=== PATIENT | female | born 1995 | race Caucasian/White ===

== ENCOUNTER 2019-09-19 12:19 | Outpatient (CLI) | payer OTHER, SELFPAY ==
--- NOTE | ~2019-09-19 | XR_ITS ---
EXAMINATION: XR lumbar spine min 4V DATE: 09/19/2019 12:59 INDICATION: Low back pain TECHNIQUE: Anteroposterior, lateral, and bilateral oblique views of the lumbar spine, and cone-down l ateral view of the lumbosacral junction were obtained. COMPARISON: None. FINDINGS: There is no fracture, dislocation, or subluxation. The vertebral body heights, alignment, a nd intervertebral disc spaces are normal. The paravertebral soft tissues are unremarkable. IMPRESSION: 1. Normal lumbar spine. Reviewed, dictated and finalized at location A. IMPRESSION: 1. Normal lumbar spine.
--- NOTE | ~2019-09-19 | XR_ITS ---
EXAMINATION:XR cervical spine min 6V DATE: 09/19/2019 12:59 INDICATION: Neck pain TECHNIQUE: AP, lateral in neutral, flexion, extension, bilateral oblique, and odontoid views of the c ervical spine are provided. COMPARISON: None FINDINGS: Bone alignment is normal. There is no laxity with flexion or extension. The odontoid is int act. No fracture is identified. Vertebral body heights and disk spaces are normal. Prevertebral soft tissues are normal. IMPRESSION: 1. Normal cervical spine. Reviewed, dictated and finalized at location A. IMPRESSION: 1. Normal cervical spine.
== END 2019-09-19 12:20 | disposition home or self-care (01) ==
PROVIDERS: PCP Internal Medicine; Visit Provider Chiropractor
DX: M54.2 Cervicalgia (principal); M54.5 Low back pain
CPT/HCPCS: 72052; 72110

== ENCOUNTER 2020-11-28 17:04 | Inpatient (IN) | payer OTHER, SELFPAY ==
[2020-11-28] VITALS (13 sets, daily range): BP systolic 107–132; BP diastolic 61–76; PULSE 61–86; RESP 18; TEMP 36.7–36.8; BMI 40.1
--- OUTSIDE RECORDS SUMMARY | 2020-11-28 17:12 | XMS_ITS ---
:1995 Author Care Team Providers Name Role Phone TANYA GERMAIN MD Primary Care Provider [phone] Allergies Code Code System Name Reaction Severity Status Onset NKDA ? Medications Name Status Start Date Stop Date ? ? amoxicillin 500 mg capsule Completed ? 10/08 cyclobenzaprine 10 mg tablet Completed ? 08/2017 etodolac 400 mg tablet Completed ? 8 fluticasone propionate 50 mcg/actuation Completed ? 01/25/2018 nasal spray,suspension hydrocodone 5 mg-acetaminophen 325 mg Unknown ? Not available tablet hydrocodone 5 mg-acetaminophen 500 mg Unknown ? Not available tablet hydrocortisone 2.5 % topical cream with Completed ? 03/26/2017 perineal applicator Lo Loestrin Fe 1 mg-10 mcg (24)/10 mcg Completed ? 04/09/2020 (2) tablet naproxen 500 mg tablet Completed ? ondansetron 4 mg disintegrating tablet Unknown ? Not available ondansetron HCl 4 mg tablet Active ? Not available penicillin V potassium 500 mg tablet Completed ? 01/25/2018 phentermine 37.5 mg tablet Completed ? 04/09 Tjr-Jy-Glwddl 0.18 mg/0.215 mg/0.25 Completed ? 04/09/2020 mg-25 mcg tablet Tubersol 5 tub. unit/0.1 mL intradermal Unknown ? Not available injection solution Zithromax Z-Cy 250 mg tablet Completed ? TAKE 2 TABLETS (500 MG) BY ORAL ROUTE O NCE DAILY FOR 1 DAY THEN 1 TABLET (250 MG) BY ORAL ROUTE ONCE DAILY FOR 4 DAYS
--- OUTSIDE RECORDS SUMMARY | 2020-11-28 17:17 | XMS_ITS ---
:1995 Author Care Team Providers Name Role Phone TANYA GERMAIN MD Primary Care Provider [phone] Allergies Code Code System Name Reaction Severity [...] phentermine 37.5 mg tablet Completed ? 04/09 Hrk-Oy-Mcbrjj 0.18 mg/0.215 mg/0.25 Completed ? 04/09/2020 mg-25 mcg tablet Tubersol 5 tub. unit/0.1 mL intradermal Unknown ? Not available injection solution Zithromax Z-Cy 250 mg tablet Completed ? TAKE 2 TABLETS (500 MG) BY ORAL ROUTE O NCE DAILY FOR 1 DAY THEN 1 TABLET (250 MG) BY ORAL ROUTE ONCE DAILY FOR 4 DAYS
[2020-11-28] MEDS: DINOPROSTONE 10 MG VAG INSERT VAGINAL (18:02)
[2020-11-28] MEDS: AMPICILLIN 2 GM/NS 100 ML 2 GM/100 ML BAG IVPB (18:10)
[2020-11-28] MEDS: LACTATED RINGERS 1,000 ML 125 ML IV CONT ×2 (18:10→22:19)
[2020-11-28 18:18] LABS: Basophils Percent Auto 0.2 % (0.2-1.2); Eosinophils Percent Auto 0.5 % (0-4.4); Hematocrit 36.6 % (37.0-47.0); Hemoglobin 12.2 g/dL (12.0-15.0); Immature Granulocyte Absolute 0.04 K/mm3 (0.00-0.031); Immature Granulocyte Percent A 0.5 % (0-0.5); Lymphocytes Absolute Auto 2.53 K/mm3 (0.9-3.2); Lymphocytes Percent Auto 28.9 % (18.3-44.2); Mean Corpuscular HGB Conc 33.3 g/dl (32-36); Mean Corpuscular Hemoglobin 29.2 pg (26-34); Mean Corpuscular Volume 87.6 fl (80-100); Mean Platelet Volume 11.1 fl (7.4-10.4); Monocytes Absolute Auto 0.5 K/mm3 (0.1-0.6); Monocytes Percent Auto 6.2 % (2.6-8.5); Neutrophils Absolute Auto 5.6 K/mm3 (1.3-6.7); Neutrophils Percent Auto 63.7 % (45.5-73.1); Platelet Count Result 222 k/mm3 (150-375); Red Blood Count 4.18 M/mm3 (4.2-5.4); Red Cell Distribution Width 13.7 % (11.5-14.5); White Blood Count 8.8 K/mm3 (4.5-10.0)
--- NOTE | 2020-11-28 18:20 | WPDANESEPP ---
Anes - Eval Pre Procedure Procedure: labor epidural Date/Time: 11/28/20 18:20 Surgeon: magali Preop Diagnosis: pain during labor Pre Op Diagnosis: Induction Patient Data Age: 25 Gender: F Height: Weight: Last Vital Signs Pulse 86 11/28/20 17:46 BP 123/73 11/28/20 17:46 Allergies Allergy/AdvReac Type Severity Reaction Status Date / Time No Known Allergies Allergy Mild Verified 11/12/20 13:40 Home Medications Medication Instructions Recorded Confirmed Type ondansetron HCl [Zofran] 4 mg PO Q4H PRN 11/12/20 11/12/20 History prenat.vits,saeed,bkx-jlsm-mvuae 1 tablet PO DAILY 11/12/20 11/12/20 History [ #2] Laboratory Tests 11/28/20 11/28/20 18:04 18:04 WBC Pending RBC Pending Hgb Pending Hct Pending MCV Pending MCH Pending MCHC Pending RDW Pending Plt Count Pending MPV Pending Immature Gran % (Auto) Pending Neut % (Auto) Pending Lymph % (Auto) Pending [place] % (Auto) Pending Eos % (Auto) Pending Baso % (Auto) Pending Lymph # (Auto) Pending [place] # (Auto) Pending Eos # (Auto) Pending Baso # (Auto) Pending Abs Immat Gran (auto) Pending Absolute Neuts (auto) Pending Absolute Nucleated RBC Pending Nucleated RBC % Pending RPR Pending Patient hx anesthesia problems: none Family hx anesthesia problems: none PMFSH Past Medical History Medical History (Updated 11/28/20 @ 18:21 by Sonia Garrido CRNA) Obesity (BMI 30-39.9) Family History Family History (Updated 11/12/20 @ 13:43 by Carly Burt RN) Father Hypertension Diabetes mellitus Sibling Hypertension Social History Social History Smoking status: Never smoker Second hand tobacco smoke exposure: No Substance use: never Spiritual care concerns: No Exam Day of Procedure 11/28/20 18:20
[2020-11-28] MEDS: AMPICILLIN 1 GM/NS 50 ML 1 GM/50 ML BAG IVPB (22:19)
[2020-11-29] VITALS (131 sets, daily range): BP systolic 63–152; BP diastolic 35–116; PULSE 25–130; RESP 16–18; TEMP 36.3–37.2; O2SAT 79–100
[2020-11-29] MEDS: AMPICILLIN 1 GM/NS 50 ML 1 GM/50 ML BAG IVPB ×3 (02:42→11:04)
[2020-11-29] MEDS: OXYTOCIN 30 UNITS/NS 500 ML 30 UNITS/500 ML BAG 6 UNITS IV CONT (05:42)
[2020-11-29] MEDS: fentaNYL CITRATE INJ (*CRX) 100 MCG/2 ML VIAL 50 MCG IV PUSH (06:15)
[2020-11-29] MEDS: fentaNYL CITRATE INJ (*CRX) 100 MCG/2 ML VIAL IV PUSH (07:25)
[2020-11-29] MEDS: LACTATED RINGERS 1,000 ML 125 ML IV CONT ×2 (08:05→11:01)
[2020-11-29 10:40] LABS: Rapid Plasma Reagin Non-Reactive (NonReactive)
[2020-11-29] MEDS: ONDANSETRON INJ 4 MG/2 ML VIAL IV PUSH (12:45)
--- NOTE | 2020-11-29 14:12 | PM.OBPRVD ---
OB - Delivery Note Procedure Route of delivery: Episiotomy description: None Laceration Description: None Specimen: Yes Quantitative Blood Loss (ml): 200 Anesthesia type: Epidural Disposition: floor Narrative: Patient prepped and draped in a manner for this procedure. Maternal expulsive efforts readily delivered vertex in the rest of baby without difficulty. Cord was clamped and cut and placenta delivered spontaneously. Cervix vagina vulva were inspected no lacerations or tears. Uterus was well contracted with no significant bleeding. Baby Weeks of gestation at delivery: 39 gender: Female Weight (pounds): 5 Weight (ounces): 10 score one minute: 8 score five minutes: 9
--- NOTE | 2020-11-29 14:14 | WPDOBADMIT ---
Obstetrics - Admit Note Admission Note: record reviewed. No pertinent additions to the history and/or any subsequent changes in the physical findings that are not consistent with the expected course of the were found. Additions to the history and/or subsequent changes in the physical findings follow. None.
--- NOTE | 2020-11-29 14:14 | WPDHPUPDATE1 ---
History and Physical Update Update Date/Time: 11/29/20 14:14 History and Physical has been reviewed, including an updated exam of the patient. There are NO changes in the patient's condition. Risks, benefits, and alternatives have been discussed and questions answered. Patient agrees to proceed with procedure.
[2020-11-29] MEDS: OXYTOCIN 30 UNITS/NS 500 ML 30 UNITS/500 ML BAG 125 UNITS IV CONT (14:36)
[2020-11-29] MEDS: WITCH HAZEL 40 PADS 1 PAD TOPICAL (16:51)
[2020-11-29] MEDS: BENZOCAINE 20% AER SPR (*SP) 56 GM CAN 1 SPRAY TOPICAL (16:51)
--- NOTE | 2020-11-29 17:05 | PC.NURSE ---
Patient transferred to post room #286 via [id number]. Support person present. Oriented to unit, room, information board, rooming in, admission packet and security measures. Patient verbalizes understanding.
[2020-11-29] MEDS: IBUPROFEN 600 MG TABLET PO ×2 (17:36→23:06)
[2020-11-29] MEDS: ACETAMINOPHEN 325 MG TABLET 650 MG PO (20:08)
[2020-11-30] VITALS: BP 130/80; PULSE 67; RESP 18; TEMP 36.9; O2SAT 100
[2020-11-30] MEDS: ACETAMINOPHEN 325 MG TABLET 650 MG PO ×4 (03:56→23:21)
[2020-11-30 04:05] VITALS: BP 108/75; PULSE 68; RESP 18; TEMP 36.8; O2SAT 98
[2020-11-30 04:46] LABS: Hematocrit 34.1 % (37.0-47.0); Hemoglobin 11.2 g/dL (12.0-15.0)
[2020-11-30 07:00] VITALS: BP 123/69; PULSE 70; RESP 18; TEMP 36.7
[2020-11-30] MEDS: DOCUSATE SODIUM 100 MG CAPSULE PO ×2 (07:20→17:11)
[2020-11-30] MEDS: IBUPROFEN 600 MG TABLET PO ×3 (07:20→20:31)
--- NOTE | 2020-11-30 07:51 | PM.OBDSVD ---
DS: Admitting Diagnosis Discharge Date 11/30/20 Admitting Diagnosis OB - DS: Summary OB Procedures : None OB Procedures Intrapartum: Spontaneous Vag Delivery OB Procedures: : None Time Spent with Patient Time attestation: Total time spent providing and/or coordinating discharge services: DS: Data Data Completed and Pending Pending studies at discharge: Pending at discharge 11/29/20 14:07 Surgical [PTH] Routine Labs on day of discharge: Labs from last 24 hours 11/30/20 11/28/20 04:03 18:04 Hgb 11.2 L Hct 34.1 L RPR Non-reactive Discharge Plan Discharge Discharging Clinician: Felix Charles Patient Disposition: Home, Self-Care Activity: as tolerated Diet: as tolerated Discharge Instructions: Education: Mom and Baby Guide Given to: Mother Follow-Up: Call your delivering provider's office for an appointment to be seen in: 3 Weeks Mom and baby should come to the [facility] for the follow-up appointment. Appointment Date/Time: Friday, December 04, 2020 at 11:00 am What to expect at your follow-up visit: Blood Pressure Check Physical Assessment Call [phone] if you are unable to keep your appointment time. BREAST CARE: * Wear a snug supportive bra. Bottle Feeding: * May apply ice packs EPISIOTOMY/PERINEAL CARE: * Until bleeding stops, use your rome bottle after urinating * Change your pad frequently throughout the day * You may take sitz baths several times a day (fill your bathtub with warm water and soak for 20 minutes.) Do NOT bathe in the water * No tub baths until seen by your physician - You may shower ACTIVITY: * Rest as much as possible. * Do not exercise or lift anything heavier than your baby (such as laundry or other children.) * Avoid stairs or driving as much as possible. * Do not put anything into the vagina. No douching, tampons, or sexual activity until seen by physician. NOTIFY PHYSICIAN IF YOU HAVE ANY QUESTIONS OR IF ANY OF THE FOLLOWING SYMPTOMS OCCUR: * If your episiotomy becomes red, swollen, or more painful than what you have experienced in the hospital. * If your vaginal bleeding becomes foul smelling. * If your vaginal bleeding becomes more heavy than a period or if your bleeding changes from pink to bright red. However, you may pass an occasional walnut-sized clot once or twice for the first week . * If you experience a sharp, shooting pain in you calves. * If you discover a hard, reddened area on your breast or if you experience flu-like symptoms. DIET: * Eat regular, well-balanced meals. * Drink plenty of fluids daily. If , drink to thirst. Patient Instructions: Antibiotic Form Stand Alone Forms: General Discharge Information Follow-up/Referrals: Felix Charles MD [Physician] - 3 Weeks Discharge Medications: New ibuprofen 600 mg Tablet 600 mg PO Q6H PRN (Reason: Cramping) Qty: 30 RF: 0 Continued prenat.vits,saeed,huy-ntmh-jwiny Tablet 1 tablet PO DAILY RF: 0 Discontinued ondansetron HCl [Zofran] 4 mg Tablet 4 mg PO Q4H PRN (Reason: Nausea) RF: 0 Date of admission: 11/28/20 17:04 Primary Care Provider: RicardoTerrance Briseno Admitting Provider: Felix Charles Attending physician on admission: Felix Charles Condition: Stable
[2020-11-30 12:29] VITALS: BP 118/61; PULSE 60; RESP 18; TEMP 36.9
--- NOTE | 2020-11-30 13:17 | WPDANLDPN2 ---
Anes-Prog Note L&D Date/Time: 11/30/20 13:17 Comfortable throughout: labor and delivery Neuraxial method: epidural Epidural/Spinal procedure site: clean & non-tender Neuro status: Neuro function grossly intact. Cardiovascular status: normal Respiratory status: normal Airway patency: baseline Mental status: baseline Post-Op hydration status: normal Vital Signs: Last Vital Signs Temp 36.9 C 11/30/20 12:29 Pulse 60 11/30/20 12:29 Resp 18 11/30/20 12:29 BP 118/61 11/30/20 12:29 Pulse Ox 98 11/30/20 04:05 Pain score (VAS): 0 I/O: Intake & Output 11/29/20 11/30/20 11/30/20 23:59 07:59 15:59 Output Total 50 Balance -50 Post-procedural complaints: none Patient feedback: Patient satisfied with anesthetic care.
[2020-11-30 15:00] VITALS: BP 129/65; PULSE 61; RESP 16; TEMP 36.2; O2SAT 100
--- NOTE | 2020-11-30 16:58 | P.DS_ITS ---
DS: Admitting Diagnosis Discharge Date 11/30/20 Admitting Diagnosis OB - DS: Summary OB Procedures : None OB Procedures Intrapartum: Spontaneous Vag Delivery OB Procedures: : None Time Spent with Patient Time attestation: Total time spent providing and/or coordinating discharge services: DS: Data Data Completed and Pending Pending studies at discharge: Pending at discharge 11/29/20 14:07 Surgical [PTH] Routine Labs on day of discharge: Labs from last 24 hours 11/30/20 04:03 Hgb 11.2 L Hct 34.1 L Discharge Plan Discharge Discharging Clinician: Felix Charles Patient Disposition: Home, Self-Care Activity: as tolerated Diet: as tolerated Discharge Instructions: Education: Mom and Baby Guide Given to: Mother Follow-Up: Call your delivering provider's office for an appointment to be seen in: 3 Weeks Mom and baby should come to the [facility] for the follow-up appointment. Appointment Date/Time: Friday, December 04, 2020 at 11:00 am What to expect at your follow-up visit: Blood Pressure Check Physical Assessment Call [phone] if you are unable to keep your appointment time. BREAST CARE: * Wear a snug supportive bra. Bottle Feeding: * May apply ice packs EPISIOTOMY/PERINEAL CARE: * Until bleeding stops, use your rome bottle after urinating * Change your pad frequently throughout the day * You may take sitz baths several times a day (fill your bathtub with warm water and soak for 20 minutes.) Do NOT bathe in the water * No tub baths until seen by your physician - You may shower ACTIVITY: * Rest as much as possible. * Do not exercise or lift anything heavier than your baby (such as laundry or other children.) * Avoid stairs or driving as much as possible. * Do not put anything into the vagina. No douching, tampons, or sexual activity until seen by physician. NOTIFY PHYSICIAN IF YOU HAVE ANY QUESTIONS OR IF ANY OF THE FOLLOWING SYMPTOMS OCCUR: * If your episiotomy becomes red, swollen, or more painful than what you have experienced in the hospital. * If your vaginal bleeding becomes foul smelling. * If your vaginal bleeding becomes more heavy than a period or if your bleeding changes from pink to bright red. However, you may pass an occasional walnut- sized clot once or twice for the first week . * If you experience a sharp, shooting pain in you calves. * If you discover a hard, reddened area on your breast or if you experience flu- like symptoms. DIET: * Eat regular, well-balanced meals. * Drink plenty of fluids daily. If , drink to thirst. Patient Instructions: Antibiotic Form Stand Alone Forms: General Discharge Information Follow-up/Referrals: Felix Charles MD [Physician] - 3 Weeks Discharge Medications: New ibuprofen 600 mg Tablet 600 mg PO Q6H PRN (Reason: Cramping) Qty: 30 RF: 0 Continued prenat.vits,saeed,juh-tlft-okiws Tablet 1 tablet PO DAILY RF: 0 Discontinued ondansetron HCl [Zofran] 4 mg Tablet 4 mg PO Q4H PRN (Reason: Nausea) RF: 0 Date of admission: 11/28/20 17:04 Primary Care Provider: Terrance Cano Admitting Provider: Felix Charles Attending physician on admission: Felix Charles Condition: Stable
[2020-11-30 19:05] VITALS: BP 123/71; PULSE 69; RESP 16; TEMP 36.1; O2SAT 99
--- NOTE | 2020-11-30 19:05 | PC.NURSE ---
Patient viewed the discharge video Mother & Baby Care, The First Two Weeks online. Patient was given the opportunity and encouraged to ask questions. Patient verbalized understanding of information shared and has been given the mother/baby guide for home reference.
[2020-12-01] MEDS: IBUPROFEN 600 MG TABLET PO ×2 (02:56→11:28)
[2020-12-01 08:00] VITALS: BP 124/83; PULSE 66; RESP 18; TEMP 36.5
[2020-12-01] MEDS: BENZOCAINE 20% AER SPR (*SP) 56 GM CAN 1 SPRAY TOPICAL (08:07)
[2020-12-01] MEDS: WITCH HAZEL 40 PADS 1 PAD TOPICAL (08:07)
[2020-12-01] MEDS: ACETAMINOPHEN 325 MG TABLET 650 MG PO (08:07)
[2020-12-01] MEDS: DOCUSATE SODIUM 100 MG CAPSULE PO (08:07)
--- NOTE | 2020-12-01 12:00 | PC.NURSE ---
Self care and infant care discharge instructions given including follow up visit date and time. Pt.verbalized understanding. No questions or concerns voiced. Very pleasant and anxious for discharge.
[2020-12-04 11:10] VITALS: BP 136/78; PULSE 72; RESP 17; TEMP 36.8; O2SAT 100
== END 2020-12-01 13:35 | disposition home or self-care (01) | DRG 807 ==
LOC: ANHLDR 17:25 → ANHOB2 11-29 17:43
PROVIDERS: Admitting Provider Obstetrics & Gynecology; PCP Internal Medicine; Visit Provider Obstetrics & Gynecology
DX: O99.824 Streptococcus B carrier state complicating childbirth (principal); Z37.0 Single live birth; Z3A.39 39 weeks gestation of pregnancy; O36.8330 Maternal care for abnormalities of the fetal heart rate or rhythm, third trimester, not applicable or unspecified; O99.214 Obesity complicating childbirth; E66.9 Obesity, unspecified
CPT/HCPCS: 36415; 85014; 85018; 85025; 86592; 86850; 86900; 86901; 88307; A9270; J0290; J2405; J2590; J2795; J3010; J7120

== ENCOUNTER 2022-03-17 10:12 | Outpatient (RCR) | payer OTHER, SELFPAY ==
[2022-03-17 11:39] LABS: Basophils Percent Auto 0.4 % (0.2-1.2); Eosinophils Absolute Auto 0.1 K/mm3 (0-0.3); Eosinophils Percent Auto 0.9 % (0-4.4); Hematocrit 39.3 % (37.0-47.0); Immature Granulocyte Absolute 0.04 K/mm3 (0.00-0.031); Immature Granulocyte Percent A 0.5 % (0-0.5); Lymphocytes Absolute Auto 2.32 K/mm3 (0.9-3.2); Lymphocytes Percent Auto 28.8 % (18.3-44.2); Mean Corpuscular HGB Conc 33.1 g/dl (32-36); Mean Corpuscular Hemoglobin 29.1 pg (26-34); Mean Corpuscular Volume 88.1 fl (80-100); Mean Platelet Volume 10.1 fl (7.4-10.4); Monocytes Absolute Auto 0.5 K/mm3 (0.1-0.6); Monocytes Percent Auto 5.7 % (2.6-8.5); Neutrophils Absolute Auto 5.1 K/mm3 (1.3-6.7); Neutrophils Percent Auto 63.7 % (45.5-73.1); Platelet Count Result 237 k/mm3 (150-375); Red Blood Count 4.46 M/mm3 (4.2-5.4); Red Cell Distribution Width 12.8 % (11.5-14.5); White Blood Count 8.1 K/mm3 (4.5-10.0)
[2022-03-17 11:52] LABS: Glucose 1 Hour PP 50gm Dose 84 mg/dL
[2022-03-17 12:25] LABS: Hepatitis B Surface Antigen Negative (Negative); Rubella IgG Antibody 21.7 IU/ML
[2022-03-17 12:32] LABS: HIV 1/2 Ab P24 Ag Result Negative (Negative)
[2022-03-18 16:15] LABS: Rapid Plasma Reagin Non-Reactive (NonReactive)
== END 2022-06-15 23:59 | disposition home or self-care (01) ==
LOC: ANHLAB 10:12
PROVIDERS: PCP Internal Medicine; Visit Provider Student in an Organized Health Care Education/Training Program
DX: Z11.4 Encounter for screening for human immunodeficiency virus [HIV] (principal); N91.2 Amenorrhea, unspecified
CPT/HCPCS: 36415; 82947; 85025; 86592; 86644; 86703; 86747; 86762; 86787; 86850; 86900; 86901; 87340; G0432

== ENCOUNTER 2022-03-25 16:30 | Outpatient (CLI) | payer OTHER, SELFPAY | END 2022-03-25 16:31 | disposition home or self-care (01) | LOC: ANHLAB 16:32 | PROVIDERS: PCP Internal Medicine; Visit Provider Student in an Organized Health Care Education/Training Program | DX: N91.2 Amenorrhea, unspecified (principal) | CPT/HCPCS: 87086 ==

== ENCOUNTER 2022-06-26 09:25 | Outpatient (RCR) | payer OTHER, SELFPAY ==
--- NOTE | 2022-06-26 10:23 | PTOPEVAL1 ---
Assessment and note entered by Kareen Ferraro DPT Evaluation Information Assessment Status Evaluation Subjective Information Pt reports a lot of radiating pain down her right leg, has been going on for the last couple months. Shoots down to her knee at times but not past. Denies n/t. Pt is 25 weeks right now. Highest pain 5/10 and lowest 2/10. Pain worsens with sitting, laying in certain positions, standing and walking, and bending over. When her pain is worse, unable to do cleaning activities that require standing like laundry. Did not have this pain with her first or before this . Returns to [place] next week. Reports no other complications this . 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 Heating pad helps the pain. Reported Pain Level Pain Score 4: Self Report Assessment PT Clinical Summary The patient is currently 25 weeks and presenting with R radiating lumbar pain. She presents with decreased hip strength and signs of neural tension which are contributing to her pain with bending, standing, and walking activities. She will highly benefit from therapy as her progresses in order to minimize pain and improve function. Plan of Care Interventions Gait Training,Hot Pack/Cold Pack,Manual Therapy, Neuro Re-education,Patient/Caregiver Education, Therapeutic Activities,Therapeutic Exercise,Self- Care/Home Management PT Services Indicated Yes Treatment Frequency and 1 time a week for 6 weeks Duration These treatments will address the objective and functional deficits as defined above. The patient will be advanced safely and appropriately in order for the patient to progress towards his/her prior level of function. Additional exercises will be introduced and as well as a comprehensive home exercise program upon discharge, if needed, ?to ensure carryover of functional gains achieved in the clinic. This treatment plan has been reviewed and agreement upon by the patient.
--- NOTE | 2022-07-01 15:45 | PCPTNOTE ---
Patient called & cancelled scheduled appointment this date due to child being sick.
--- NOTE | 2022-07-09 13:14 | PTOPDC ---
Assessment and note entered by Kareen Ferraro DPT Evaluation Information Assessment Status Discharge - Pt Not Present Subjective Information Assessment PT Clinical Summary Pt is self discharging- reports her back feels good. Plan of Care PT Services Indicated No
== END 2022-07-30 10:19 | disposition home or self-care (01) ==
LOC: ANHPT 09:25
PROVIDERS: PCP Internal Medicine; Visit Provider Obstetrics & Gynecology
DX: M54.30 Sciatica, unspecified side (principal)
CPT/HCPCS: 97110; 97140; 97161

== ENCOUNTER 2022-07-29 08:53 | Outpatient (CLI) | payer OTHER, SELFPAY ==
[2022-07-29 11:06] LABS: Basophils Percent Auto 0.3 % (0.2-1.2); Eosinophils Absolute Auto 0.1 K/mm3 (0-0.3); Eosinophils Percent Auto 0.7 % (0-4.4); Hematocrit 34.6 % (37.0-47.0); Hemoglobin 11.3 g/dL (12.0-15.0); Immature Granulocyte Absolute 0.13 K/mm3 (0.00-0.031); Immature Granulocyte Percent A 1.4 % (0-0.5); Lymphocytes Percent Auto 23.5 % (18.3-44.2); Mean Corpuscular HGB Conc 32.7 g/dl (32-36); Mean Corpuscular Hemoglobin 29.2 pg (26-34); Mean Corpuscular Volume 89.4 fl (80-100); Mean Platelet Volume 10.5 fl (7.4-10.4); Monocytes Absolute Auto 0.6 K/mm3 (0.1-0.6); Monocytes Percent Auto 6.3 % (2.6-8.5); Neutrophils Absolute Auto 6.3 K/mm3 (1.3-6.7); Neutrophils Percent Auto 67.8 % (45.5-73.1); Platelet Count Result 196 k/mm3 (150-375); Red Blood Count 3.87 M/mm3 (4.2-5.4); Red Cell Distribution Width 12.9 % (11.5-14.5); White Blood Count 9.4 K/mm3 (4.5-10.0)
[2022-07-29 11:23] LABS: Glucose 1 Hour PP 50gm Dose 94 mg/dL
[2022-07-29 11:55] LABS: HIV 1/2 Ab P24 Ag Result Negative (Negative)
== END 2022-07-29 08:54 | disposition home or self-care (01) ==
LOC: ANHLAB 08:54
PROVIDERS: PCP Internal Medicine; Visit Provider Obstetrics & Gynecology
DX: Z34.90 Encounter for supervision of normal pregnancy, unspecified, unspecified trimester (principal); Z3A.00 Weeks of gestation of pregnancy not specified
CPT/HCPCS: 36415; 82947; 85025; 86703; G0432

== ENCOUNTER 2022-09-06 10:30 | Observation (INO) | payer OTHER, SELFPAY ==
[2022-09-06 10:07] VITALS: BP 119/73; PULSE 98
[2022-09-06 11:38] LABS: Add Urine Microscopic? YES; Appearance Urine Clear (Clear); Bacteria Urine None Seen /hpf; Bilirubin Urine Negative (Negative); Blood Urine Trace (Negative); Color Urine Yellow (Yellow); Glucose Urine UA Negative (Negative); Ketones Urine Negative (Negative); Leukocyte Esterase Ur Trace LEU/UL (Negative); Need Manual Microscopic Reviewed; Nitrate Urine Negative (Negative); Non Pathogenic Casts 0-2; Protein Urine Negative (Negative); RBC Urine 0-2 /hpf (0-2); Specific Grav Ur 1.002 (1.001-1.035); Squamous Epithelial Cell Urine None seen /hpf (Few); Urobilinogen Urine 0.2 mg/dL (<2.0); WBC Urine 0-5 /hpf
[2022-09-06] MEDS: TERBUTALINE SULFATE 1 MG/ML VIAL 0.25 MG SUB-Q (12:46)
[2022-09-06 13:56] VITALS: BP 126/74; PULSE 93
--- NOTE | 2022-09-08 13:25 | PM.OBTRLD ---
OB - Triage/Final Diagnosis Visit Information Comments/Additional reasons for admission: I have assessed the risk for this patient, Amanda Ellis, and determined that she would benefit from observation care. Evaluation Laboratory results: Laboratory Tests 09/06/22 11:19 Urine Color Yellow Urine Appearance Clear Urine pH 7.0 Ur Specific [place] 1.002 Urine Protein Negative Urine Glucose (UA) Negative Urine Ketones Negative Ur Blood (Man) Trace Urine Nitrate Negative Urine Bilirubin Negative Urine Urobilinogen 0.2 Add Ur Microanalysis Reviewed Leukocyte Esterase Rfl Trace H Urine RBC 0-2 Urine WBC 0-5 Ur Squamous Epith Cells None seen Urine Bacteria None seen Urine Casts 0-2 Final Diagnosis (1) Vaginal discharge during : Code(s): O26.899 - Other specified related conditions, unspecified trimester; N89.8 - Other specified noninflammatory disorders of vagina Status: Acute
== END 2022-09-06 14:10 | disposition home or self-care (01) ==
LOC: ANHOBOP 12:42 → ANHOBPP 14:01
PROVIDERS: Admitting Provider Obstetrics & Gynecology; PCP Internal Medicine; Visit Provider Obstetrics & Gynecology
DX: O26.899 Other specified pregnancy related conditions, unspecified trimester (principal); N89.8 Other specified noninflammatory disorders of vagina; Z3A.00 Weeks of gestation of pregnancy not specified
CPT/HCPCS: 81001; 84112; 96372; G0378; G0379; J3105

== ENCOUNTER 2022-09-28 05:30 | Inpatient (IN) | payer OTHER, SELFPAY ==
[2022-09-28] VITALS (115 sets, daily range): BP systolic 57–152; BP diastolic 34–127; PULSE 45–266; RESP 16–20; TEMP 36.6–37.1; O2SAT 76–100; BMI 38.7
[2022-09-28 06:06] LABS: Basophils Percent Auto 0.3 % (0.2-1.2); Eosinophils Absolute Auto 0.1 K/mm3 (0-0.3); Eosinophils Percent Auto 0.7 % (0-4.4); Hematocrit 36.5 % (37.0-47.0); Hemoglobin 12.3 g/dL (12.0-15.0); Lymphocytes Absolute Auto 3.19 K/mm3 (0.9-3.2); Lymphocytes Percent Auto 31.7 % (18.3-44.2); Mean Corpuscular HGB Conc 33.7 g/dl (32-36); Mean Corpuscular Hemoglobin 29.6 pg (26-34); Mean Corpuscular Volume 87.7 fl (80-100); Mean Platelet Volume 10.6 fl (7.4-10.4); Monocytes Absolute Auto 0.8 K/mm3 (0.1-0.6); Monocytes Percent Auto 7.5 % (2.6-8.5); Neutrophils Absolute Auto 5.9 K/mm3 (1.3-6.7); Neutrophils Percent Auto 58.8 % (45.5-73.1); Platelet Count Result 205 k/mm3 (150-375); Red Blood Count 4.16 M/mm3 (4.2-5.4); Red Cell Distribution Width 13.5 % (11.5-14.5); White Blood Count 10.1 K/mm3 (4.5-10.0)
--- NOTE | 2022-09-28 06:14 | LDADM ---
This patient, Amanda Ellis, was admitted to Labor/Delivery/Recovery 108 on 09/28/22 at 05:30. Plans for labor, pain management and were discussed with patient. Patient/family oriented to hospital policies and general routines including ID bracelet, bed and alarms, visiting hours, pain management, procedures, bathroom and other care routines, personal items, smoking policy, room service/diet and guest tray routines, infant security routines, and visiting hours. Patient/Family are encouraged to report perceived risks to care and to ask questions if they do not understand what they are told or what they should do. See OBIX for further documentation.
[2022-09-28] MEDS: LACTATED RINGERS 1,000 ML 125 ML IV CONT ×2 (06:22→08:36)
[2022-09-28] MEDS: OXYTOCIN 30 UNITS/NS 500 ML 30 UNITS/500 ML BAG IV CONT (06:23)
[2022-09-28] MEDS: ONDANSETRON INJ 4 MG/2 ML VIAL IV PUSH (09:35)
[2022-09-28] MEDS: PHENYLEPHRINE 1,000 MCG/10 ML SYRINGE 100 MCG IV PUSH (09:35)
--- NOTE | 2022-09-28 13:24 | P.PCNOB_ITS ---
OB - Delivery Note Procedure Induction method: Per Pitocin Protocol Delivery augmentation: Rupture of Membranes Delivery monitor: External FHT and External Uterine Route of delivery: Episiotomy description: None Laceration Description: None Specimen: No Quantitative Blood Loss (ml): 200 Anesthesia type: Epidural Complications: none Narrative: patient prepped draped usual manner for this procedure. Maternal expulsive efforts readily delivered vertex over intact perineum. Nuchal cord was noted and reduced x2. Rest of baby readily delivered, cord clamped cut, and placenta delivered spontaneously. Uterus was well contracted. Cervix vagina vulva were inspected with no lacerations or tears. Patient are procedure well immediate postoperative condition of mother baby were both excellent. [place] Baby Weeks of gestation at delivery: 39 gender: Female Weight (pounds): 6 Weight (ounces): 6 presentation: vertex Placenta delivery description: Spontaneous Cord Vessel Description: 3 Vessels, Nuchal Cord (X2) and Reduced score one minute: 9 score five minutes: 9 AMG Delivery Billing Delivery Delivery: Delivery Charge
--- NOTE | 2022-09-28 13:24 | WPDHPUPDATE1 ---
History and Physical Update Update Date/Time: 09/28/22 13:24 History and Physical has been reviewed, including an updated exam of the patient. There are NO changes in the patient's condition. Risks, benefits, and alternatives have been discussed and questions answered. Patient agrees to proceed with procedure.
[2022-09-28] MEDS: OXYTOCIN 30 UNITS/NS 500 ML 30 UNITS/500 ML BAG 125 UNITS IV CONT (13:43)
--- NOTE | 2022-09-28 16:10 | PC.NURSE ---
Patient transferred to post room #286 via wheelchair. Support person present. Oriented to unit, room, information board, rooming in, admission packet and security measures. Patient verbalizes understanding.
[2022-09-28] MEDS: IBUPROFEN 600 MG TABLET PO (18:30)
[2022-09-28] MEDS: ACETAMINOPHEN 325 MG TABLET 650 MG PO (21:43)
[2022-09-29] MEDS: IBUPROFEN 600 MG TABLET PO ×3 (00:36→13:26)
[2022-09-29 00:40] VITALS: BP 123/81; PULSE 61; RESP 18; TEMP 36.7
[2022-09-29] MEDS: DOCUSATE SODIUM 100 MG CAPSULE PO ×2 (01:12→10:55)
[2022-09-29] MEDS: ACETAMINOPHEN 325 MG TABLET 650 MG PO ×2 (04:15→10:55)
[2022-09-29 05:31] LABS: Hematocrit 33.8 % (37.0-47.0); Hemoglobin 10.8 g/dL (12.0-15.0)
[2022-09-29] MEDS: MULTIVIT/MIN/PREN/FOL AC/IRON TABLET 1 TAB PO (07:08)
--- NOTE | 2022-09-29 07:48 | WPDANLDPN2 ---
Anes-Prog Note L&D Date/Time: 09/29/22 07:48 Comfortable throughout: labor and delivery Neuraxial method: epidural Epidural/Spinal procedure site: clean & non-tender Neuro status: Neuro function grossly intact. Cardiovascular status: normal Respiratory status: normal Airway patency: baseline Mental status: baseline Post-Op hydration status: normal Vital Signs: Last Vital Signs Temp 36.7 C 09/29/22 00:40 Pulse 61 09/29/22 00:40 Resp 18 09/29/22 00:40 BP 123/81 09/29/22 00:40 Pulse Ox 98 09/28/22 16:15 O2 Del Method Room Air 09/28/22 06:13 Pain score (VAS): 03/31 I/O: Intake & Output 09/28/22 09/28/22 09/29/22 15:59 23:59 07:59 Intake Total 2500 740 Output Total 300 200 Balance 2200 540 Post-procedural complaints: none Patient feedback: Patient satisfied with anesthetic care.
[2022-09-29 08:30] VITALS: BP 109/66; PULSE 57; RESP 16; TEMP 37; O2SAT 100
--- NOTE | 2022-09-29 08:51 | PM.OBDSVD ---
DS: Admitting Diagnosis Discharge Date 09/29/2022 Admitting Diagnosis DS: Discharge Diagnosis Discharge Diagnosis (1) , delivered: Code(s): O80 - Encounter for full-term uncomplicated delivery Status: Acute OB - DS: Summary OB Procedures : None OB Procedures Intrapartum: Spontaneous Vag Delivery OB Procedures: : None Time Spent with Patient Time attestation: Total time spent providing and/or coordinating discharge services: DS: Data Data Completed and Pending Labs on day of discharge: Labs from last 24 hours 09/29/22 04:18 Hgb 10.8 L Hct 33.8 L Discharge Plan Discharge Discharging Clinician: Felix Charles Patient Disposition: Home, Self-Care Activity: as tolerated Diet: as tolerated Patient Instructions: Antibiotic Form Stand Alone Forms: General Discharge Information Follow-up/Referrals: Felix Charles MD [Physician] - 3 Weeks Discharge Medications: New ibuprofen 600 mg Tablet 600 mg PO Q6H PRN (Reason: Cramping) Qty: 30 0RF Continued prenat.vits,saeed,mzc-gocc-kafkn Tablet 1 tablet PO DAILY Discontinued ondansetron HCl 4 mg tablet 4 mg PO Q6H Qty: 27 5RF Date of admission: 09/28/22 05:30 Primary Care Provider: Josh*Terrance Admitting Provider: Felix Charles Attending physician on admission: Felix Charles Condition: Stable
[2022-09-29 12:16] VITALS: BP 123/69; PULSE 63; RESP 16; TEMP 36.8; O2SAT 98
--- NOTE | 2022-09-29 14:10 | PC.NURSE ---
Patient viewed the discharge video Mother & Baby Care, The First Two Weeks . Patient was given the opportunity and encouraged to ask questions. Patient verbalized understanding of information shared and has been given the mother/baby guide for home reference.
[2022-09-30 08:10] LABS: Rapid Plasma Reagin Non-Reactive (NonReactive)
[2022-09-30 11:32] VITALS: BP 129/74; PULSE 61; RESP 18; TEMP 37.1; O2SAT 100
== END 2022-09-29 14:35 | disposition home or self-care (01) | DRG 807 ==
LOC: ANHLDR 05:33 → ANHOB2 16:17
PROVIDERS: Admitting Provider Obstetrics & Gynecology; PCP Internal Medicine; Visit Provider Obstetrics & Gynecology
DX: O69.81X0 Labor and delivery complicated by cord around neck, without compression, not applicable or unspecified (principal); Z37.0 Single live birth; Z3A.39 39 weeks gestation of pregnancy
CPT/HCPCS: 36415; 85014; 85018; 85025; 86592; 86850; 86900; 86901; A9270; J2371; J2405; J2590; J2795; J7120

== ENCOUNTER 2023-08-03 08:17 | Outpatient (CLI) | payer OTHER, SELFPAY ==
--- NOTE | ~2023-08-03 | US_ITS ---
EXAMINATION: US thyroid DATE: 08/03/2023 08:51 INDICATION: Goiter TECHNIQUE: Multiple ultrasound images of the thyroid were obtained. COMPARISON: None. FINDINGS: The right thyroid lobe measures 5.5 x 1.8 x 1.6 cm. The left thyroid lobe measures 4.2 x 1.1 x 1.9 c m. 9 mm solid wider than tall nodule with smooth margins and without echogenic foci at the inferior left thyroid (TI-RADS 4, moderately suspicious , FNA if >=1.5 cm, annual followup is >=1 cm). Similar 3 mm TI RADS 4 nodule in the right thyroid. There is normal echotexture, echogenicity and vascular f low throughout the remainder of the thyroid gland. IMPRESSION: 1. A couple likely benign TI RADS 4 thyroid nodules the largest measuring 9 mm in the left thyroid wh ich remain below size criteria for either biopsy or follow-up. Reviewed, dictated and finalized at location B. IMPRESSION: 1. A couple likely benign TI RADS 4 thyroid nodules the largest measuring 9 mm in the left thyroid which remain below size criteria for either biopsy or follo w-up.
--- NOTE | ~2023-08-03 | US_ITS ---
EXAMINATION: US right upper quadrant DATE: 08/03/2023 08:52 INDICATION: Right upper quadrant abdominal pain and nausea TECHNIQUE: Multiple grayscale and Doppler ultrasound images of the abdomen were obtained. COMPARISON: None FINDINGS: Increase is normal. Liver has normal echogenicity and contour, with a smooth surface. No liver lesion identified. No intrahepatic biliary duct dilation suspected. Portal venous flow was seen in the hepa topetal, normal direction and has normal Doppler waveform. The gallbladder is normal in appearance. There is no cholelithiasis. The common bile duct measures 2 mm, which is normal. Sonographic Talavera s ign was reported as negative by the electrical tryout person.The visualized proximal inferior vena cava and aorta are normal. IMPRESSION: 1. Normal right upper quadrant ultrasound. Reviewed, dictated and finalized at location B.
== END 2023-08-03 08:18 ==
LOC: MICIMG 08:18
PROVIDERS: PCP Physician Assistant; Visit Provider Physician Assistant
DX: R10.9 Unspecified abdominal pain (principal)
CPT/HCPCS: 76536; 76705

== ENCOUNTER 2024-07-26 15:57 | Outpatient (CLI) | payer OTHER, SELFPAY ==
--- NOTE | ~2024-07-26 | MR_ITS ---
MRI of the brain Clinical History: Dizziness and giddiness Technique: Axial and sagittal T1-weighted images were acquired. These were followed by axial T2-weigh elroy, diffusion weighted, gradient, and FLAIR images. Thin cut axial and coronal T1-weighted and T2-we ighted images were performed through the internal auditory canals. Following intravenous administrati on of 18 cc ProHance gadolinium, T1-weighted fat-sat imaging was performed through the brain in the a xial and coronal planes. Thin cut T1-weighted postcontrast imaging was performed through the internal auditory canals in the axial and coronal planes. Findings: No abnormal signal seen in the brain parenchyma. No acute infarct, intracranial hemorrhage, or mass lesion. Ventricles and subarachnoid spaces are unremarkable. Orbits are unremarkable. Paranasal sinuses and m astoid air cells are clear. Major intracranial flow voids are intact. Sagittal midline structures are intact. No abnormal postcontrast enhancement identified. No abnormal mass lesion seen at the internal auditory canals or CP angle regions. IMPRESSION: Normal exam. Reviewed, dictated and finalized at location . IMPRESSION: Normal exam.
--- OUTSIDE RECORDS SUMMARY | 2024-07-26 16:01 | XMS_ITS | Clinical Summary ---
Author Organization [facility] Address [address] [place] [address] Care Team Providers Care Intermediate Teacher Name Role Phone Terrance Silva MD Primary Care Provider [phone] Terrance Silva MD Unavailable [phone] Source Comments [facility],non-owned Affiliates and Associated Physician Practices is amultiple site organization consisting of ambulatory clinics and hospital sitesin [place], [place], [place] and [place]. This disclosure is being madepursuant to the Care Everywhere program and may not contain all information available regarding this patient. Last updated 17.[facility] Allergies No known active allergies Medications * Be aware that medications may not be up to date on this document. Alwaysverify current medications with the patient. LOESTRIN 24 FE PO Take 1 Tab by mouth at bedtime. Active fluticasone propionate (FLONASE) 50 MCG/ACT nasal sprayIndications :Allergic rhinitis, unspecified seasonality, unspecified trigger Kemp 2 sprays into each nostril once daily 1 bottles 09/23/2017 Active Active Problems Problem Noted Date Diagnosed Date Abdominal pain 07/18/2009 Overview (12/20/2014): Family History Medical History Relation Name Comments Diabetes - Type 2 Father Hypertension Father Relation Name Status Comments Father Social History Tobacco Use Types Packs/Day Years Used Date Smoking Tobacco: Never Smokeless Tobacco: Never Alcohol Use Standard Drinks/Week Comments No 0 (1 standard drink = 0.6 oz pur e alcohol) Comments No Sex and Gender Information Value Date Recorded Sex Assigned at Not on file Legal Sex Female 5:37 AM [employer] Gender Identity Not on file Sexual Orientation Not on file Last Filed Vital Signs Vital Sign Reading Time Taken Comments Blood Pressure 118/70 09/23/2017 12:40 PM CDT Pulse 73 09/23/2017 12:40 PM CDT Temperature 37 C (98.6 F) 09/23/2017 12:40 PM CDT Respiratory Rate 16 09/23/2017 12:40 PM CDT Oxygen Saturation 98% 09/23/2017 12:40 PM CDT Inhaled Oxygen Concentration - - Weight 77.1 kg (170 lb) 09/23/2017 12:40 PM CDT Height 152.4 cm (5') 09/23/2017 12:40 PM CDT Body Mass Index 33.2 09/23/2017 12:40 PM CDT Plan of Treatment Health Maintenance Due Date Last Done Comments HIV SCREENING 01/12/2011 HEPATITIS C SCREENING 01/08/2014 DTAP/TDAP/TD VACCINES (1 - Tdap) 01/12/2015 HEPATITIS B VACCINE (1 of 3 - 19+ 3-dose series) 01/12/2015 COVID-19 VACCINE (1 - 2023-2 5 season) 2023 DEPRESSION SCREENING 03/22/2024 INFLUENZA VACCINE (Season Ended) 2024 ZOSTER VACCINE (1 of 2) 01/12/2046 HIB VACCINE Aged Out No longer eligi ble based on patient's age to complete this topic HPV VACCINE Aged Out No longer eligi ble based on patient's age to complete this topic MENINGOCOCCAL (Group B) VACC INE SHARED DECISION-MAKING Aged Out No longer eligibl e based on patient's age to complete this topic MENINGOCOCCAL GROUPS A/C/Y/W VACCINE Aged Out No longer eligible b ased on patient's age to complete this topic PNEUMOCOCCAL VACCINE Aged Out No long er eligible based on patient's age to complete this topic Insurance [facility] Care Teams Intermediate Teacher Relationship Specialty Start Date End Date Terrance Silva MD PCP - General 12/03/20 Terrance Silva MD Internal Medicine 12/03/20
== END 2024-07-26 15:58 | disposition home or self-care (01) ==
PROVIDERS: PCP Physician Assistant; Visit Provider Physician Assistant
DX: R42 Dizziness and giddiness (principal)
CPT/HCPCS: 70553; A9579

== ENCOUNTER 2025-01-29 10:28 | Outpatient (CLI) | payer OTHER, SELFPAY ==
--- NOTE | ~2025-01-29 | US_ITS ---
EXAMINATION: US thyroid DATE: 01/29/2025 11:13 INDICATION: Thyromegaly TECHNIQUE: Multiple ultrasound images of the thyroid were obtained. COMPARISON: 08/03/2023 FINDINGS: The right thyroid lobe measures 5.5 x 1.8 x 1.6 cm. The left thyroid lobe measures 5.2 x 1.9 x 1.1 cm. 1.0 cm solid hypoechoic wider than tall nodule with smooth to ill-defined margins and without echogenic foci in the inferior left thyroid lobe (TI-RADS 4, moderately suspicious , FNA if >=1.5 cm, annual followup is >=1 cm). There is a second 3 mm TI RADS 4 nodule at the mid right thyroid with similar imaging features. There is normal echotexture, echogenicity and vascular flow throughout the remainder of the thyroid gland. IMPRESSION: 1. A couple small TI RADS 4 thyroid nodules the larger measuring 1.0 cm left thyroid lobe for which annual ultrasound follow-up would be recommended. Reviewed, dictated and finalized at location A. [employer] IMPRESSION: 1. A couple small TI RADS 4 thyroid nodules the larger measuring 1.0 cm left th yroid lobe for which annual ultrasound follow-up would be recommended.
== END 2025-01-29 10:29 | disposition home or self-care (01) ==
LOC: MICIMG 10:29
PROVIDERS: PCP Physician Assistant; Visit Provider Physician Assistant
DX: E01.0 Iodine-deficiency related diffuse (endemic) goiter (principal)
CPT/HCPCS: 76536